=== PATIENT | female | born 1980 | race Caucasian/White ===

== ENCOUNTER → 2018-03-09 | Outpatient (CLI) | payer BC ==
[~2018-03-09] MED LIST: GIANVI 3 MG-0.01 TAB PO; ILOTYCIN5 MG/GM OU; NORCO 325 MG-51 TAB PO
== END ==
LOC: COL.RAD 13:13
DX: K59.8 Other specified functional intestinal disorders (principal)
CPT/HCPCS: Q9967

== ENCOUNTER → 2023-02-03 | Outpatient (CLI) | payer OTHER | LOC: MC.RAD 08:53 | DX: Z12.31 Encounter for screening mammogram for malignant neoplasm of breast (principal) ==